=== PATIENT | female | born 1970 | race Caucasian/White ===

== ENCOUNTER 2019-01-02 12:26 | Emergency (ER) | payer MEDICAID, OTHER ==
[~2019-01-02] VITALS: Ht 167.6 cm; Wt 65.8 kg
[2019-01-02 12:35] VITALS: BP 130/113
--- NOTE | 2019-01-02 12:47 | NUR ---
48 Y/O F W/ C/O PERIRECTAL ABSCESS WITH SEVERE PAIN X 1 WK. PT STATES NOTED DRAINAGE. PT DENIES N/V/D; PT IS VISIBLY AGITATED. AAOX4, PERRL, WITH EVEN AND STEADY GAIT; PT DENIES ANY FEVER, CP, SOB, OR COUGH AT THIS TIME; PT STATES 10/10 PAIN AT THIS TIME; VSS; PATIENT POSITIONED FOR COMFORT; HOB ELEVATED; BEDRAILS UP X2; BED DOWN. ER MD MADE AWARE.
--- NOTE | 2019-01-02 12:52 | NUR ---
Patient being evaluated by physician at bedside.
[2019-01-02] MEDS ORDERED: CLINDAMYCIN 600 MG/4 ML VIAL IM ONE (13:00)
[2019-01-02] MEDS ORDERED: KETOROLAC 60 MG/2 ML VIAL IM ONE (13:00)
[2019-01-02] MEDS ORDERED: MORPHINE SULFATE 4 MG/ML SYR IM ONE (13:00)
--- NOTE | 2019-01-02 14:00 | NUR ---
PT RESTING IN BED, NO S/S OF DISTRESS NOTED. PT CALM, IN RELAXED POSITION.
[2019-01-02] MEDS ORDERED: LIDOCAINE/EPI 1% 1:100000 20 ML VIAL INJ ONE ×2 (15:14→16:25)
--- NOTE | 2019-01-02 15:55 | NUR ---
DR. WATKINS PERFROMED I&D AT THIS TIME.
[2019-01-02] MEDS ORDERED: BACITRACIN OINT 500 UNITS/GM PKT TP ONE ×2 (16:04→16:25)
[2019-01-02 16:19] VITALS: BP 128/89
--- NOTE | 2019-01-02 16:20 | NUR ---
Patient discharged with v/s stable. Written and verbal after care instructions given and explained. Patient alert, oriented and verbalized understanding of instructions. Ambulatory with steady gait. All questions addressed prior to discharge. ID band removed. Patient advised to follow up with PMD. Rx of TRAMADOL, CLINDAMYCIN, ANUSOL given. Patient educated on indication of medication including possible reaction and side effects. Opportunity to ask questions provided and answered.
== END 2019-01-02 16:20 | disposition home or self-care (01) ==
LOC: MED 12:26
DX: K64.5 Perianal venous thrombosis (principal); E07.9 Disorder of thyroid, unspecified; F41.9 Anxiety disorder, unspecified
CPT/HCPCS: 46083; 96372; 99284; J1885; J2001; J3490; J2270

== ENCOUNTER 2019-03-06 14:17 | Emergency (ER) | payer OTHER ==
[~2019-03-06] VITALS: Ht 172.7 cm; Wt 68.0 kg
[2019-03-06 14:35] VITALS: BP 122/68
--- NOTE | 2019-03-06 14:41 | NUR ---
PT TRIAGED AND AMBULATED TO ER LOBBY
--- NOTE | 2019-03-06 16:00 | NUR ---
PATIENT RE-EVALUATED, NO CHANGE IN CONDITION.
--- NOTE | 2019-03-06 17:00 | NUR ---
PATIENT RE-EVALUATED, NO CHANGE IN CONDITION.
--- NOTE | 2019-03-06 18:00 | NUR ---
PATIENT RE-EVALUATED, NO CHANGE IN CONDITION.
--- NOTE | 2019-03-06 18:36 | NUR ---
PT AMBULATED TO BED 3
--- NOTE | 2019-03-06 18:42 | NUR ---
PT BIB SELF TO THE ED WITH THE CHIEF C/O BACK PAIN, NECK PAIN AND DIZZINESS X 3 DAYS. VOMIT X2 TODAYS PER PT. NO BLOOD IN VOMIT. COMPLAINS NAUSEA. VSS. DENIES ANY OTHER PROBLE AT THIS TIME. HX OF ARTHRITIS. TAKING SULFASALAZINE, HYDROCHLOROQUINE AND BACLOFEN CURRENTLY. DENIES ANY RECENT FALL OR INJURY. ER MD AWARE.
--- NOTE | 2019-03-06 19:09 | NUR ---
REPORT GIVEN TO CIVIL ENGINEERING MANAGER RN FOR CONTINUITY OF CARE.
--- NOTE | 2019-03-06 19:10 | NUR ---
RECIEVED REPORT FROM [facility]ERIAL FOR CONTINUED CARE.
[2019-03-06] MEDS ORDERED: fentaNYL 0.05 MG/ML VIAL IM ONE (19:55)
[2019-03-06 20:47] VITALS: BP 133/79
--- NOTE | 2019-03-06 20:48 | NUR ---
Patient discharged with v/s stable. Written and verbal after care instructions given and explained. Patient alert, oriented and verbalized understanding of instructions. Ambulatory with steady gait. All questions addressed prior to discharge. ID band removed. Patient advised to follow up with PMD. Rx of TRAMADOL, MOTRIN, MEDROL DOSEPAK given. Patient educated on indication of medication including possible reaction and side effects. Opportunity to ask questions provided and answered.
== END 2019-03-06 20:43 | disposition home or self-care (01) ==
LOC: MED 14:17
DX: M46.92 Unspecified inflammatory spondylopathy, cervical region (principal); M46.96 Unspecified inflammatory spondylopathy, lumbar region; G89.29 Other chronic pain; R42 Dizziness and giddiness; R11.2 Nausea with vomiting, unspecified
CPT/HCPCS: 71045; 72072; 81002; 81025; 82948; 96372; 99283; J3010; Q0092

== ENCOUNTER 2019-04-23 00:25 | Emergency (ER) | payer OTHER ==
[~2019-04-23] VITALS: Ht 157.5 cm; Wt 64.4 kg
--- NOTE | 2019-04-23 00:25 | NUR ---
PT TAHMINA ALS. TAKEN TO BED 10
--- NOTE | 2019-04-23 00:31 | NUR ---
Dr. Whitfield evaluating patient at bedside.
[2019-04-23 00:33] VITALS: BP 129/82
--- NOTE | 2019-04-23 01:00 | NUR ---
49 YO F TAHMINA FROM HOME D/T ALOC. [facility] STATED FAMILY FOUND HER UNRESPONSIVE ON THE COUCH AT HOME. PER EMS, PT ONLY AROUSABLE TO PAIN UPON ARRIVAL. PT RECEIVED NARCAN 2 MG ON SCENE IVP TO L 20 G AC. UPON ARRIVAL TO ED, PT IS AWAKE, ALERT, NON-VERBAL. EYES PERRLA. EYE TRACKING NOTED. PT FOLLOWS COMMANDS BUT DOES NOT RESPOND TO QUESTIONS. VSS UPON ARRIVAL. -- PT APPEARS CALM. NO ACUTE DISTRESS NOTED AT THIS TIME. -- SKIN PINK, WARM, DRY. BREATHING EVEN, UNLABORED. -- FAMILY IN WAITING ROOM. [facility] Addendum: 04/23/19 at 0234 by [facility] BS: [id number]
[2019-04-23 01:03] LABS: BASOPHILS % (AUTO) 0.4 % (0.0-2.0); EOSINOPHILS % (AUTO) 0.2 % (0.0-4.0); HEMATOCRIT 40.3 % (36-48); HEMOGLOBIN 13.2 g/dL (12.0-16.0); LYMPHOCYTES # (AUTO) 1.6 K/uL (2.5-16.5); LYMPHOCYTES % (AUTO) 24.4 % (20.5-51.1); MEAN CORPUSCULAR HEMOGLOBIN 29 pg (27-31); MEAN CORPUSCULAR HGB CONC 33 g/dL (33-37); MEAN CORPUSCULAR VOLUME 87.8 fL (80-94); MONOCYTES # (AUTO) 0.7 K/uL (0.8-1.0); MONOCYTES % (AUTO) 10.3 % (1.7-9.3); NEUTROPHILS # (AUTO) 4.2 K/uL (1.8-7.7); NEUTROPHILS % (AUTO) 64.7 % (42.2-75.2); PLATELET COUNT (AUTO) 236 K/uL (140-450); RED BLOOD CELL COUNT(AUTO) 4.59 MIL/uL (4.20-5.40); RED CELL DISTRIBUTION WIDTH 13.5 % (11.6-13.7); WHITE BLOOD COUNT (AUTO) 6.6 K/uL (4.8-10.8)
--- NOTE | 2019-04-23 01:11 | NUR ---
PT TAKEN TO RADIOLOGY
[2019-04-23 01:17] LABS: ALBUMIN 4.1 g/dL (3.4-5.0); ANION GAP 8.8 (8-16); ASPARTATE AMINOTRANSFERASE 19 U/L (15-37); CARBON DIOXIDE 31.2 mmol/L (21-32); CHLORIDE 103 mmol/L (98-107); CREATININE 0.8 mg/dL (0.6-1.3); GFR ARICAN-AMERICAN 98 mL/min (>90); GLUCOSE 117 mg/dL (74-106); SODIUM SERUM 139 mmol/L (136-145); TOTAL BILIRUBIN 0.5 mg/dL (0.0-1.0); UREA NITROGEN, BLOOD 12 mg/dL (7-18)
[2019-04-23 01:26] LABS: ACETAMINOPHEN < 0.5 ug/ml (10-30); SALICYLATE < 2.8 mg/dL (2.8-20.0)
--- NOTE | 2019-04-23 01:26 | NUR ---
PT RETURNED FROM CT.
--- NOTE | 2019-04-23 01:30 | NUR ---
CT REPORT Impression: No acute abnormality
--- NOTE | 2019-04-23 02:34 | NUR ---
PT WAS STRAIGHT CATH PER MD AND U/A WAS SENT TO LAB. PT TOLERATED WELL.
[2019-04-23 02:45] LABS: APPEARANCE,URINE CLEAR (CLEAR); BILIRUBIN,URINE NEGATIVE (NEGATIVE); BLOOD, URINE NEGATIVE (NEGATIVE); COLOR,URINE YELLOW (YELLOW); LEUKOCYTE ESTERASE ,URINE NEGATIVE (NEGATIVE); NITRITE, URINE NEGATIVE (NEGATIVE); PH,URINE 7.5 (5.0-9.0); UGLUCOSE NEGATIVE (NEGATIVE)
[2019-04-23 02:46] LABS: BARBITURATE, URINE NEG. ng/ml (NEG <=200); BENZODIAZEPINE, URINE NEG. ng/mL (NEG <=200); CANNABINOID, URINE NEG. ng/mL (NEG <=50); COCAINE, URINE NEG. ng/mL (NEG <=300); OPIATE, URINE NEG. ng/mL (NEG <=2000); PHENCYCLIDINE SCREEN,URINE NEG. ng/mL (NEG <=25)
[2019-04-23 03:27] VITALS: BP 123/84
--- NOTE | 2019-04-23 03:27 | NUR ---
Patient discharged with v/s stable. Written and verbal after care instructions given and explained. Patient verbalized understanding. Ambulatory with steady gait. All questions addressed prior to discharge. Advised to follow up with PMD.
== END 2019-04-23 03:27 | disposition home or self-care (01) ==
LOC: MED 00:25
DX: R40.4 Transient alteration of awareness (principal); F43.9 Reaction to severe stress, unspecified
CPT/HCPCS: 36415; 70450; 71045; 80053; 80305; 81003; 81025; 84484; 85025; 93005; 99284; C1758; G0480; G0482